=== PATIENT | female | born 1945 | race African-American/Black ===

== ENCOUNTER 2016-11-11 11:13 | Outpatient (CLI) | payer MEDICARE ==
--- NOTE | 2016-11-11 15:29 | Cat Scan Report ---
CT ABDOMEN AND PELVIS WITHOUT CONTRAST INDICATION: Hepatic cyst. COMPARISON: 01/11/2016 FINDINGS: Abdomen and pelvis CT performed following oral contrast only. LUNG BASES: Slight right lung base pleural thickening or fluid posteriorly may again be present, axial image 53, series 2. Cardiomegaly, atherosclerotic calcifications, streak artifact from pacemaker leads and a tiny left lower lobe calcified granuloma also again noted. Slight nonspecific distal esophageal prominence/thickening. ABDOMEN: Please note that sensitivity to detect small visceral lesions is limited due to the absence of intravenous contrast. Interval resolution of ascites. Left hepatic lobe cyst again approximately 4.4 x 3.6 cm in maximum orthogonal dimension, axial image 57, series 2. Otherwise grossly unremarkable unenhanced liver, spleen, gallbladder, pancreas, adrenals, nonaneurysmal though tortuous abdominal aorta with few atherosclerotic calcifications, IVC and bilateral kidneys with small bilateral extrarenal pelves. No ascites or definite significant adenopathy. Opacified GI tract nonobstructive and within normal limits. Normal appendix. PELVIS: Urinary bladder, uterus, adnexa/ovaries and rectosigmoid within normal limits. No free fluid or significant adenopathy. Demineralized bones with mild multilevel spinal degenerative spurring. Heterogeneity of the iliac bones noted, right more than left with sclerosis and partial bridging of the right SI joint space posteriorly as on axial image 230, series 2, amongst others. CONCLUSION: Interval resolution of ascites with various other findings as cardiomegaly, left hepatic lobe cyst and pelvic/iliac bony appearance again noted, amongst others, as detailed above. Thank you for the opportunity to participate in this patient's care.
== END 2016-11-11 11:14 | disposition home or self-care (01) ==
LOC: CT 11:13
PROVIDERS: ATTEND Internal Medicine Gastroenterology
DX: K76.89 Other specified diseases of liver (principal); I70.0 Atherosclerosis of aorta; I11.0 Hypertensive heart disease with heart failure; I50.9 Heart failure, unspecified; I25.10 Atherosclerotic heart disease of native coronary artery without angina pectoris; E78.00 Pure hypercholesterolemia, unspecified; Z95.0 Presence of cardiac pacemaker
CPT/HCPCS: 74176